=== PATIENT | female | born 1955 | race Asian ===

== ENCOUNTER 2017-02-22 08:23 | Outpatient (CLI) | payer BC ==
[2017-02-22] MEDS ORDERED: BARIUM SULFATE 135 ML SUSP.RECON (E-Z-HD) PO ONE (09:02)
== END 2017-02-22 16:00 | disposition home or self-care (01) ==
LOC: SRD 08:23
PROVIDERS: ATTEND Otolaryngology Plastic Surgery within the Head & Neck
DX: K21.9 Gastro-esophageal reflux disease without esophagitis (principal); K44.9 Diaphragmatic hernia without obstruction or gangrene
CPT/HCPCS: 74220-TC

== ENCOUNTER 2021-03-12 11:00 | Emergency (ER) | payer BC ==
[~2021-03-12] VITALS: Ht 157.5 cm; Wt 56.7 kg
[2021-03-12 11:00] VITALS: BP_SYST 152
[2021-03-12] MEDS ORDERED: methylPREDNISolone SOD SUCC/PF 62.5 MG/ML VIAL IVP ONE (11:30)
[2021-03-12] MEDS ORDERED: NACL 0.9% 500 ML IV ONE (11:30)
[2021-03-12] MEDS ORDERED: DIPHENHYDRAMINE INJ 50 MG/ML VIAL IVP ONE (11:30)
[2021-03-12] MEDS ORDERED: FEXO180T94 PO (12:33)
[2021-03-12 12:40] VITALS: BP_SYST 152
== END 2021-03-12 12:41 | disposition home or self-care (01) ==
LOC: SED 11:00
DX: J02.9 Acute pharyngitis, unspecified (principal); J38.5 Laryngeal spasm; I10 Essential (primary) hypertension; Z88.8 Allergy status to other drugs, medicaments and biological substances
CPT/HCPCS: 96374; 96375; 99284; J1200; J2930

== ENCOUNTER 2022-10-30 11:06 | Emergency (ER) | payer OTHER, MEDICARE ==
[~2022-10-30] VITALS: Ht 157.5 cm; Wt 52.2 kg
[~2022-10-30 11:06] MED LIST: FEXO180T94 PO
[2022-10-30 11:12] VITALS: BP_SYST 131
--- NOTE | 2022-10-30 11:33 | NUR ---
ER at bedside examining patient.
[2022-10-30 12:13] LABS: BASOPHILS % (AUTO) 0.6 % (0.0-2.0); EOSINOPHILS # (AUTO) 0.3 K/uL (0.0-0.4); EOSINOPHILS % (AUTO) 5.5 % (0.0-4.0); HEMATOCRIT 40.6 % (36-48); HEMOGLOBIN 13.8 g/dL (12.0-16.0); LYMPHOCYTES # (AUTO) 1.1 K/uL (1.0-5.5); LYMPHOCYTES % (AUTO) 20.4 % (20.5-51.5); MEAN CORPUSCULAR HEMOGLOBIN 30 pg (27-31); MEAN CORPUSCULAR HGB CONC 34 % (32-36); MEAN CORPUSCULAR VOLUME 88 fL (79.0-98.0); MONOCYTES # (AUTO) 0.4 K/uL (0.0-1.0); MONOCYTES % (AUTO) 6.8 % (1.7-9.3); NEUTROPHILS # (AUTO) 3.6 K/uL (1.8-7.7); NEUTROPHILS % (AUTO) 66.7 % (40.0-70.0); PLATELET COUNT (AUTO) 206 K/uL (130-430); RED BLOOD CELL COUNT(AUTO) 4.63 MIL/uL (4.2-6.2); RED CELL DISTRIBUTION WIDTH 13.2 % (9.0-15.0); WHITE BLOOD COUNT (AUTO) 5.4 K/uL (4.8-10.8)
[2022-10-30 12:36] LABS: ANION GAP 8 (5-15); CALCIUM 9.1 mg/dL (8.4-11.0); CHLORIDE 102 mmol/L (98-107); CREATININE 0.68 mg/dL (0.55-1.30); GFR AFRICAN AMERICAN 111 mL/min (>90); GLUCOSE 106 mg/dL (70-99); UREA NITROGEN, BLOOD 15 mg/dL (8-21)
[2022-10-30 12:49] LABS: ALANINE AMINOTRANSFERASE 25 U/L (12-78); ASPARTATE AMINOTRANSFERASE 19 U/L (10-37); TOTAL BILIRUBIN 0.8 mg/dL (0.0-1.0)
--- NOTE | 2022-10-30 13:09 | NUR ---
Pt brought in by self from home chief complaint General weakness to bilateral muscle calves, slight headache, some periods of light headedness, palpitations, anxiety and gassy feeling. Pt is awake alert oriented x3, Pt is currently taking Cipro for UTI. Bilateral hand umbrella tipper present, pt denies SOB, pt skin intact warm and dry.
--- NOTE | 2022-10-30 13:14 | NUR ---
Pt taken to radiology dept via jeison.
--- NOTE | 2022-10-30 18:00 | NUR ---
Patient given written and verbal discharge instructions and verbalizes understanding. ER MD discussed with patient the results and treatment provided. Patient in stable condition. ID arm band removed. IV catheter removed intact and dressing applied, no active bleeding.
[2022-10-30 19:35] VITALS: BP_SYST 131
== END 2022-10-30 19:35 | disposition home or self-care (01) ==
LOC: SED 11:06
DX: R55 Syncope and collapse (principal); R42 Dizziness and giddiness; R51.9 Headache, unspecified; I10 Essential (primary) hypertension; Z79.899 Other long term (current) drug therapy
CPT/HCPCS: 36415; 70450-TC; 71045; 76376; 80053; 83605; 84484; 85025; 93005; 99285

== ENCOUNTER 2023-04-11 13:51 | Inpatient (IN) | payer OTHER, MEDICARE ==
[~2023-04-11] VITALS: Ht 157.5 cm; Wt 54.4 kg
--- NOTE | 2023-04-11 14:00 | NUR ---
Patient to ER bed 6 for evaluation. Side rails up. Report given to SHREYAS Magana.
[2023-04-11 14:05] VITALS: BP_SYST 137
[2023-04-11] MEDS ORDERED: MORPHINE 2 MG/ML INJ. SYRINGE IVP ONE (14:30)
[2023-04-11] MEDS ORDERED: KETOROLAC TROMETHAMINE 30 MG VIAL IVP ONE (14:30)
[2023-04-11] MEDS ORDERED: ONDANSETRON HCL 4 MG/2 ML VIAL IVP ONE (14:30)
--- NOTE | 2023-04-11 14:43 | NUR ---
Met patient and her significant other. Got urine and blood sent to lab. IV started. Patient awiting results of test while resting on gurney.
[2023-04-11 14:44] LABS: BASOPHILS # (AUTO) 0.1 K/uL (0.0-0.2); BASOPHILS % (AUTO) 0.7 % (0.0-2.0); EOSINOPHILS # (AUTO) 0.5 K/uL (0.0-0.4); EOSINOPHILS % (AUTO) 5.6 % (0.0-4.0); HEMATOCRIT 39.4 % (36-48); HEMOGLOBIN 13.4 g/dL (12.0-16.0); LYMPHOCYTES # (AUTO) 2.1 K/uL (1.0-5.5); LYMPHOCYTES % (AUTO) 25.2 % (20.5-51.5); MEAN CORPUSCULAR HEMOGLOBIN 30 pg (27-31); MEAN CORPUSCULAR HGB CONC 34 % (32-36); MEAN CORPUSCULAR VOLUME 88 fL (79.0-98.0); MONOCYTES # (AUTO) 0.5 K/uL (0.0-1.0); MONOCYTES % (AUTO) 6.4 % (1.7-9.3); NEUTROPHILS # (AUTO) 5.1 K/uL (1.8-7.7); NEUTROPHILS % (AUTO) 62.1 % (40.0-70.0); PLATELET COUNT (AUTO) 210 K/uL (130-430); RED BLOOD CELL COUNT(AUTO) 4.46 MIL/uL (4.2-6.2); RED CELL DISTRIBUTION WIDTH 13.1 % (9.0-15.0); WHITE BLOOD COUNT (AUTO) 8.2 K/uL (4.8-10.8)
[2023-04-11 14:49] LABS: ANION GAP 11 (5-15); CALCIUM 9.3 mg/dL (8.4-11.0); CHLORIDE 98 mmol/L (98-107); CREATININE 0.75 mg/dL (0.55-1.30); GFR AFRICAN AMERICAN 99 mL/min (>90); GLUCOSE 117 mg/dL (70-99); UREA NITROGEN, BLOOD 10 mg/dL (8-21)
[2023-04-11 14:56] LABS: ALANINE AMINOTRANSFERASE 18 U/L (12-78); ALBUMIN 4.1 g/dL (3.4-4.8); ASPARTATE AMINOTRANSFERASE 19 U/L (10-37); LIPASE 159 U/L (73-393); TOTAL BILIRUBIN 0.6 mg/dL (0.0-1.0)
[2023-04-11 15:14] LABS: BILIRUBIN,URINE NEGATIVE (NEGATIVE); BLOOD, URINE 2+ (NEGATIVE); COLOR,URINE YELLOW (YELLOW); GLUCOSE,URINE NEGATIVE (NEGATIVE); KETONES,URINE TRACE (NEGATIVE); LEUKOCYTE ESTERASE ,URINE 1+ (NEGATIVE); NITRITE, URINE NEGATIVE (NEGATIVE); PROTEIN URINE NEGATIVE (NEGATIVE); UROBILINOGEN,URINE 0.2 (0.2-1.0)
[2023-04-11 15:19] LABS: CLARITY/URINE CLOUDY (CLEAR)
[2023-04-11] MEDS ORDERED: NACL 0.9% 1,000 ML IV ONE (16:00)
[2023-04-11] MEDS ORDERED: cefTRIAXone 1 GM in D5W 50 ML IV ONE (16:00)
--- NOTE | 2023-04-11 16:02 | NUR ---
Patient sleeping with no sign or symptoms of acute distress at thi time.
--- NOTE | 2023-04-11 16:03 | NUR ---
Admit bed requested Patient will be admitted to care of . Admitted to med-surg unit. Diagnosis Kidney Stones/UTI Inpatient (Yes or No) Yes Observation (Yes or No) No Orientation concerns or request close to nursing station (Yes or No) No Covid Status No symptoms On vent or bipap No Isolation requirements No Needs a sitter No From Home (Yes or if No enter name of facility) No Requires Dialysis (Yes or No) No Med Rec Completed (Yes of No) Yes
[2023-04-11] MEDS ORDERED: D5/0.45 NS 1,000 ML IV ONE (16:15)
[2023-04-11] MEDS ORDERED: ROSU5TAB13 PO (16:19)
[2023-04-11] MEDS ORDERED: AMLO-138 (16:19)
--- NOTE | 2023-04-11 16:19 | NUR ---
Medication reconciliation completed with information provided by PATIENT AT BEDSIDE. Any prior medication reconciliation on file was reviewed and corrected.
[2023-04-11 16:48] LABS: BACTERIA,URINE FEW /HPF (None Seen)
[2023-04-11] MEDS ORDERED: cefTRIAXone 1 GM VIAL ONE (16:56)
--- NOTE | 2023-04-11 17:09 | NUR ---
Patient will be admitted to care of Dr. Shepard. Admitted to med surg unit. Will go to room 111A. Belongings list completed. Complete and up to date summary report printed. SBAR report to be given at bedside with opportunity for questions.
--- NOTE | 2023-04-11 17:40 | NUR ---
ADMISSION NOTE Received patient from ER via [facility], received SBAR report from ezekiel PRITCHETT. Patient admitted with diagnosis of GI bleed/UTI. Patient is awake, alert, oriented x4, respiration even and unlabored, no signs of distress, no c/o N/V. IV to right forearm #[id number] patent Patient oriented to hospital room, call light, toileting, pain management and safety-teach back done. Personal belongings checked and Belongings List documented. All safety secured, bed in low position and call light within reach.
[2023-04-11 17:47] VITALS: BP_SYST 127
--- NOTE | 2023-04-11 20:05 | NUR ---
Initial RN notes Pt AAOx4, VSS, no s/s distress noted. Pt ambulated to bathroom with assist. Pt states abd pain is less and tolerable. IVF infusing R. FA20G at ordered rate. Call light within reach. Bed low, locked, siderails up x3, alarm on. Daughter at bedside.
[2023-04-11 20:10] VITALS: BP_SYST 138
--- NOTE | 2023-04-11 22:30 | NUR ---
Ambulated to bathroom w/ assist Straining urine, no stone noted.
[2023-04-12 01:03] VITALS: BP_SYST 110
--- NOTE | 2023-04-12 07:30 | NUR ---
Initial note: report received from Maeve. patient is awake alert x4. Call light in reach. Bed in the lowest position and side rails x2 up. No pain or discomfort at this time. Will continue patient care.
[2023-04-12 08:00] VITALS: BP_SYST 123
[2023-04-12] MEDS ORDERED: HYDROcodone/ACETAMIN 10-325 MG TAB PO PRN (09:45)
[2023-04-12] MEDS ORDERED: NALOXONE HCL 0.4 MG/ML AMP (NARCAN) IVP PRN ×2 (09:45)
[2023-04-12] MEDS ORDERED: BENAZEPRIL HCL 20 MG TABLET (LOTENSIN) PO SCH (09:45)
[2023-04-12] MEDS ORDERED: ACETAMINOPHEN 325 MG TABLET PO PRN ×2 (09:45→10:30)
[2023-04-12] MEDS ORDERED: HYDROcodone/ACETAMIN 5-325 MG TAB (NORCO/ VICODIN) PO PRN (09:45)
[2023-04-12] MEDS ORDERED: ONDANSETRON HCL 4 MG/2 ML VIAL IVP PRN (09:45)
[2023-04-12] MEDS ORDERED: D5/0.45 NS 1,000 ML IV SCH (09:45)
[2023-04-12] MEDS ORDERED: LORazepam 2 MG/ML VIAL IVP PRN (09:45)
[2023-04-12] MEDS ORDERED: cefTRIAXone 1 GM IVPB PREMIX 50 ML IV SCH (10:00)
[2023-04-12] MEDS ORDERED: CIPR500T5 PO (10:17)
[2023-04-12] MEDS ORDERED: IBUP-1969 PO (10:17)
[2023-04-12] MEDS ORDERED: TAMS0.4C96 PO (10:17)
[2023-04-12] MEDS ORDERED: amLODIPine BESYLATE 10 MG TABLET PO ONE (10:30)
[2023-04-12] MEDS ORDERED: lisinopriL 20 MG TABLET PO ONE (10:30)
[2023-04-12] MEDS ORDERED: TAMSULOSIN HCL 0.4 MG CAP PO ONE (10:30)
[2023-04-12 11:56] VITALS: BP_SYST 131
--- NOTE | 2023-04-12 12:00 | NUR ---
Note: patient is awake alert x4. Daughter is at the bedside. no pain or discomfort at this time.
[2023-04-12 15:19] VITALS: BP_SYST 131
--- NOTE | 2023-04-12 15:30 | NUR ---
D/C Patient Patient given medication reconciliation form and D/C instructions. Exit Care provided. Patient verbalized understanding. MD discussed with patient the results and treatment provided. Ambulatory with steady gait for discharge to home. Patient in stable condition, ID band removed. IV catheter removed, intact and dressing applied, no active bleeding. Rx of given. Patient educated on pain management. All belongings sent with patient. Daughter is at the bedside. discharge instruction was given.
[2023-04-13] MEDS ORDERED: amLODIPine BESYLATE 10 MG TABLET PO SCH (09:00)
[2023-04-13] MEDS ORDERED: lisinopriL 20 MG TABLET PO SCH (09:00)
[2023-04-13] MEDS ORDERED: TAMSULOSIN HCL 0.4 MG CAP PO SCH (09:00)
== END 2023-04-12 15:30 | disposition home or self-care (01) | DRG 694 ==
LOC: SED 13:51 → SMU 16:03
PROVIDERS: ADMIT Specialist; ATTEND Specialist
DX: N20.0 Calculus of kidney (principal); E87.1 Hypo-osmolality and hyponatremia; N39.0 Urinary tract infection, site not specified; E78.5 Hyperlipidemia, unspecified; I10 Essential (primary) hypertension; R73.9 Hyperglycemia, unspecified; Z90.710 Acquired absence of both cervix and uterus
CPT/HCPCS: 36415; 76376; 80053; 81000; 83690; 84484; 85025; 87086; 93005; 96374; 96375; 99285; J0696; J1885; J2270; J2405